=== PATIENT | female | born 1975 | race Asian ===

== ENCOUNTER 2020-04-07 15:07 | Emergency (ER) | payer BC ==
[~2020-04-07] VITALS: Ht 160 cm; Wt 57.7 kg
--- NOTE | 2020-04-07 15:15 | NUR ---
EKG COMPLETED BY MOI MOYER
--- NOTE | 2020-04-07 15:21 | NUR ---
1240-44 YR OLD FEMALE ARRIVED VIA EMS FROM [place]. PER REPORT PT DONATED BLOOD TODAY, WAITED AN HOUR, HAD JUICE AND COOKIES, STOOD UP, PT HAD SYNCOPAL EPISODE. PT ALSO HAD AN EMESIS. PT WITH PAIN LOWER BACK AND LEFT SCAPULA. PT RECEIVED APPROX 400CC NS AND ZOFRAN PRIOR TO ARRIVAL BS 122. PT ARRIVES ALERT AND AWAKE, "STILL FEEL DIZZY" DR WAN AT BEDSIDE TO EVAL PT. PER MD PT TO RECEIVE BALANCE OF NS LITER STARTED ER NURSE. PTS ASHLEE, NOW AT BEDSIDE. PT UPDATED ON POC.
[2020-04-07] MEDS ORDERED: SODIUM CHLORIDE 0.9% 1,000ML IVBOLUS ONE (15:30)
[2020-04-07] MEDS ORDERED: SODIUM CHLORIDE FLUSH 10ML SYR IVF ONE (15:30)
[2020-04-07 15:36] LABS: BASOPHILS % (AUTO) 1 % (0-1); EOSINOPHILS % (AUTO) 1 % (1-7); LYMPHOCYTES % (AUTO) 18 % (22-44); MEAN CORPUSCULAR HEMOGLOBIN 29.4 pg (27.0-34.8); MEAN PLATELET VOLUME 6.4 fL (7.4-10.4); MONOCYTES % (AUTO) 5 % (2-9); NEUTROPHILS % (AUTO) 76 % (42-75); PLATELET COUNT 407 x10^3/uL (130-400); RED BLOOD COUNT 4.14 x10^6/uL (3.82-5.3); RED CELL DISTRIBUTION WIDTH 13.3 % (9.6-15.2)
[2020-04-07 15:39] LABS: MD NO
--- NOTE | 2020-04-07 15:40 | NUR ---
PT WANTING TO USE BSC. DECLINED RN ASSISTANCE. DISCUSSED WITH PT, HER INCREASE RISK OF FALL, VERBALIZED UNDERSTANDING. STATES "MY WILL HELP ME"
[2020-04-07 15:46] LABS: ALBUMIN 3.4 g/dL (3.4-5.0); ANION GAP 4 mmol/L (5-15); CALCIUM 8.1 mg/dL (8.5-10.1); CHLORIDE 116 mmol/L (98-107); CREATININE 0.78 mg/dL (0.55-1.02)
--- NOTE | 2020-04-07 15:56 | NUR ---
PORTABLE XRAY IN PROCESS
[2020-04-07] MEDS ORDERED: ATOR10TA9 PO (15:58)
[2020-04-07] MEDS ORDERED: TRAZ-175 PO (15:58)
--- NOTE | 2020-04-07 16:31 | NUR ---
PT SLEEPING. IV INFUSING WITHOUT REDNESS/SWELLING. PT'S NOTIFIED THAT TESTING RESULTS ARE BACK, MD WILL BE IN TO REASSESS. UNDERSTANDING VERBALIZED.
--- NOTE | 2020-04-07 16:42 | NUR ---
DR WAN AT BEDSIDE TO RE-EVAL PT
[2020-04-07 17:09] VITALS: BP 118/56
--- NOTE | 2020-04-07 17:11 | NUR ---
Patient/Caregiver given discharge instructions and they have confirmed that they understand the instructions. Patient D/C IN WHEELCHAIR WITH AT SIDE.
== END 2020-04-07 17:17 | disposition home or self-care (01) ==
LOC: ED 17:13
DX: S20.212A Contusion of left front wall of thorax, initial encounter (principal); R55 Syncope and collapse; E86.0 Dehydration; M25.511 Pain in right shoulder; M25.512 Pain in left shoulder; F17.200 Nicotine dependence, unspecified, uncomplicated; W19.XXXA Unspecified fall, initial encounter; Y93.89 Activity, other specified; Y92.89 Other specified places as the place of occurrence of the external cause; Y99.8 Other external cause status
CPT/HCPCS: 36415; 73010; 80048; 82040; 85025; 93005; 96360; 99285; J7030

== ENCOUNTER 2020-04-15 14:30 | Outpatient (CLI) | payer BC ==
[~2020-04-15 14:30] MED LIST: ATOR10TA9 PO; TRAZ-175 PO
== END 2020-04-15 23:59 | disposition home or self-care (01) ==
LOC: CFH 14:30
PROVIDERS: ATTEND Family Medicine
DX: Z12.31 Encounter for screening mammogram for malignant neoplasm of breast (principal)
CPT/HCPCS: 77063; 77067

== ENCOUNTER → 2020-06-20 | Outpatient (CLI) | payer BC | END | disposition home or self-care (01) | LOC: CFH 08:11 | PROVIDERS: ATTEND Internal Medicine Cardiovascular Disease | DX: R06.02 Shortness of breath (principal); R07.9 Chest pain, unspecified; R55 Syncope and collapse | CPT/HCPCS: 78452; 93017; A9502 ==

== ENCOUNTER → 2020-06-24 | Outpatient (CLI) | payer BC | END | disposition home or self-care (01) | LOC: CVU 08:16 | PROVIDERS: ATTEND Internal Medicine Cardiovascular Disease | DX: I34.0 Nonrheumatic mitral (valve) insufficiency (principal); R73.03 Prediabetes; E78.5 Hyperlipidemia, unspecified; Z87.891 Personal history of nicotine dependence | CPT/HCPCS: 93306; 93356 ==